=== PATIENT | female | born 1990 | race American Indian/Alaskan Native ===

== ENCOUNTER 2022-02-04 12:54 | Outpatient (CLI) | payer OTHER ==
[2022-02-04 13:23] LABS: Hematocrit 30.3 % (30.3-42.9); Hemoglobin 9.7 gm/dl (10.1-14.3); Mean Corpuscular HGB Conc 32 % (30-34); Platelet Count 313 K/mm3 (140-440); Red Blood Count 4.69 M/mm3 (3.65-5.03)
[2022-02-04 13:25] LABS: Mean Corpuscular Volume 65 fl (79-97); Red Cell Distribution Width 21.1 % (13.2-15.2)
[2022-02-04 13:47] LABS: ABG Base Excess -3.4 mmol/L (-2.0-3.0); ABG HCO3 20.1 mmol/L (20.0-26.0); ABG Methemoglobin 0.4 % (0.0-1.5); ABG Oxygen Saturation 97.4 % (95.0-99.0); ABG PCO2 30.4 mm Hg; ABG PH 7.437 pH Units (7.350-7.450); ABG PO2 93.1 mm Hg (80.0-90.0)
[2022-02-04 13:52] LABS: Alanine Aminotransferase 31 units/L (7-56); Albumin 3.7 g/dL (3.9-5); Blood Urea Nitrogen 9 mg/dL (7-17); Calcium 9.2 mg/dL (8.4-10.2); Chol/HDL Ratio 2.98 %; HDL Cholesterol 51 mg/dL (40-59); Hemolysis Index 5; LDL Cholesterol,Direct 85 mg/dL (50-130)
[2022-02-04 13:53] LABS: BUN/Creatinine Ratio 18
== END 2022-02-04 12:55 | disposition home or self-care (01) ==
LOC: LAB 12:54
PROVIDERS: ATTEND Internal Medicine
DX: J45.909 Unspecified asthma, uncomplicated (principal); D64.9 Anemia, unspecified; Z68.44 Body mass index [BMI] 60.0-69.9, adult; Z87.01 Personal history of pneumonia (recurrent); Z86.16 Personal history of COVID-19
CPT/HCPCS: 36415; 36600; 80053; 80061; 82550; 82728; 82785; 82803; 83615; 84436; 84443; 84484; 85027; 85379; 86140